=== PATIENT | female | born 1990 | race African-American/Black ===

== ENCOUNTER 2019-01-24 17:10 | Inpatient (IN) | payer OTHER, MEDICAID ==
[~2019-01-24] VITALS: Ht 162.6 cm; Wt 86.2 kg
[2019-01-24 19:09] VITALS: BP 106/60
[2019-01-24] MEDS ORDERED: cefTRIAXone 2,000 MG in DEXTROSE 5% 100 ML IV ONE (19:50)
[2019-01-24] MEDS ORDERED: MORPHINE SULFATE 5 MG/ML VIAL IVP PRN (19:50)
[2019-01-24] MEDS ORDERED: NACL 0.9% 500 ML IV ONE (19:50)
[2019-01-24] MEDS: NACL 0.9% 1,000 ML IV SCH ×2 (20:05→23:56)
[2019-01-24] MEDS ORDERED: cefTRIAXone 1,000 MG VIAL ONE (20:07)
[2019-01-24] MEDS ORDERED: MORPHINE SULFATE 10 MG/ML VIAL ONE (20:17)
[2019-01-25] MEDS ORDERED: MORPHINE SULFATE 10 MG/ML VIAL ONE ×5 (00:09→19:48)
[2019-01-25] MEDS ORDERED: LACTATED RINGERS 1,000 ML IV SCH (08:08)
[2019-01-25] MEDS ORDERED: ACETAMINOPHEN 325 MG TAB PO PRN (08:10)
--- NOTE | 2019-01-25 08:54 | NUR ---
PATIENT HAS BEEN SCREENED AND CATEGORIZED LOW NUTRITION RISK. PATIENT WILL BE SEEN WITHIN 7 DAYS OF ADMISSION. 01/31/[address]
[2019-01-25] MEDS ORDERED: ACETAMINOPHEN 325 MG TAB ONE (09:39)
[2019-01-25] MEDS: NACL 0.9% 1,000 ML IV SCH ×2 (09:52→16:36)
[2019-01-25 11:29] LABS: ANION GAP 15.4 (8-16); CARBON DIOXIDE 21.9 mmol/L (21-32); CREATININE 0.5 mg/dL (0.6-1.3); POTASSIUM 3.3 mmol/L (3.5-5.1)
[2019-01-25 13:52] LABS: BASOPHILS % (AUTO) 0.4 % (0.0-2.0); EOSINOPHILS # (AUTO) 0.1 K/uL (0-0.4); EOSINOPHILS % (AUTO) 1.2 % (0.0-4.0); HEMATOCRIT 31.6 % (36-48); HEMOGLOBIN 10.7 g/dL (12.0-16.0); LYMPHOCYTES # (AUTO) 1.4 K/uL (2.5-16.5); LYMPHOCYTES % (AUTO) 25.8 % (20.5-51.1); MEAN CORPUSCULAR HEMOGLOBIN 32 pg (27-31); MEAN CORPUSCULAR HGB CONC 34 g/dL (33-37); MEAN CORPUSCULAR VOLUME 93.4 fL (80-94); MONOCYTES # (AUTO) 0.4 K/uL (0.8-1.0); MONOCYTES % (AUTO) 8.2 % (1.7-9.3); NEUTROPHILS # (AUTO) 3.6 K/uL (1.8-7.7); NEUTROPHILS % (AUTO) 64.4 % (42.2-75.2); PLATELET COUNT (AUTO) 208 K/uL (140-450); RED BLOOD CELL COUNT(AUTO) 3.39 MIL/uL (4.20-5.40); RED CELL DISTRIBUTION WIDTH 12.7 % (11.6-13.7); WHITE BLOOD COUNT (AUTO) 5.5 K/uL (4.8-10.8)
[2019-01-25 16:25] LABS: BILIRUBIN,URINE NEGATIVE (NEGATIVE); BLOOD, URINE NEGATIVE (NEGATIVE); COLOR,URINE YELLOW (YELLOW); LEUKOCYTE ESTERASE ,URINE NEGATIVE (NEGATIVE); NITRITE, URINE NEGATIVE (NEGATIVE); UGLUCOSE NEGATIVE (NEGATIVE)
[2019-01-25 16:27] LABS: APPEARANCE,URINE CLEAR (CLEAR)
[2019-01-25 16:35] LABS: BARBITURATE, URINE NEG. ng/ml (NEG <=200); BENZODIAZEPINE, URINE NEG. ng/mL (NEG <=200); CANNABINOID, URINE POS. ng/mL (NEG <=50); COCAINE, URINE NEG. ng/mL (NEG <=300); OPIATE, URINE POS. ng/mL (NEG <=2000); PHENCYCLIDINE SCREEN,URINE NEG. ng/mL (NEG <=25)
[2019-01-25] MEDS: MORPHINE SULFATE 5 MG/ML VIAL IVP PRN (19:56)
[2019-01-25] MEDS: cefTRIAXone 1,000 MG in DEXT 5% MINI-BAG PLUS 50 ML IV SCH (20:24)
[2019-01-26] MEDS: NACL 0.9% 1,000 ML IV SCH ×2 (00:05→22:33)
[2019-01-26] MEDS ORDERED: MORPHINE SULFATE 10 MG/ML VIAL ONE ×4 (00:50→18:40)
[2019-01-26] MEDS: MORPHINE SULFATE 5 MG/ML VIAL IVP PRN ×3 (00:55→18:49)
[2019-01-26 07:43] VITALS: BP 111/57
[2019-01-26 10:29] LABS: BARBITURATE, URINE NEG. ng/ml (NEG <=200); BENZODIAZEPINE, URINE NEG. ng/mL (NEG <=200); CANNABINOID, URINE POS. ng/mL (NEG <=50); COCAINE, URINE NEG. ng/mL (NEG <=300); OPIATE, URINE POS. ng/mL (NEG <=2000); PHENCYCLIDINE SCREEN,URINE NEG. ng/mL (NEG <=25)
[2019-01-26] MEDS ORDERED: DOCUSATE SODIUM 100 MG GELCAP PO PRN (10:30)
[2019-01-26] MEDS ORDERED: cefTRIAXone 1,000 MG VIAL ONE (20:14)
[2019-01-26] MEDS: cefTRIAXone 1,000 MG in DEXT 5% MINI-BAG PLUS 50 ML IV SCH (20:24)
[2019-01-27] MEDS ORDERED: MORPHINE SULFATE 10 MG/ML VIAL ONE ×3 (01:02→13:30)
[2019-01-27] MEDS: MORPHINE SULFATE 5 MG/ML VIAL IVP PRN (01:09)
== END 2019-01-27 16:15 | disposition home or self-care (01) | DRG 833 ==
LOC: MLD 17:10 → MFCC 01-25 09:30 → OBSVTOIN 01-25 14:39
PROVIDERS: ADMIT Obstetrics & Gynecology; ATTEND Obstetrics & Gynecology
DX: O23.02 Infections of kidney in pregnancy, second trimester (principal); Z88.8 Allergy status to other drugs, medicaments and biological substances
CPT/HCPCS: G0378 ×21; 36415; 59025; 76770; 76805; 76815; 80048; 80305; 81003; 85025; 87086; C1758; J0696; J2270; J7060; J7120; Q0092

== ENCOUNTER 2019-03-19 13:30 | Inpatient (IN) | payer OTHER, MEDICAID ==
[~2019-03-19] VITALS: Ht 162.6 cm; Wt 90.3 kg
[2019-03-19] MEDS ORDERED: PREN-380 PO (14:01)
[2019-03-19 14:17] VITALS: BP 113/61
[2019-03-19 15:29] LABS: BASOPHILS % (AUTO) 0.2 % (0.0-2.0); EOSINOPHILS % (AUTO) 0.2 % (0.0-4.0); HEMATOCRIT 32.3 % (36-48); LYMPHOCYTES # (AUTO) 0.9 K/uL (2.5-16.5); LYMPHOCYTES % (AUTO) 18.4 % (20.5-51.1); MEAN CORPUSCULAR HEMOGLOBIN 31 pg (27-31); MEAN CORPUSCULAR HGB CONC 34 g/dL (33-37); MEAN CORPUSCULAR VOLUME 91.9 fL (80-94); MONOCYTES # (AUTO) 0.4 K/uL (0.8-1.0); MONOCYTES % (AUTO) 7.8 % (1.7-9.3); NEUTROPHILS # (AUTO) 3.6 K/uL (1.8-7.7); NEUTROPHILS % (AUTO) 73.4 % (42.2-75.2); PLATELET COUNT (AUTO) 203 K/uL (140-450); RED BLOOD CELL COUNT(AUTO) 3.52 MIL/uL (4.20-5.40); RED CELL DISTRIBUTION WIDTH 12.3 % (11.6-13.7)
[2019-03-19 15:42] LABS: APPEARANCE,URINE SL CLOUDY (CLEAR); BILIRUBIN,URINE NEGATIVE (NEGATIVE); BLOOD, URINE NEGATIVE (NEGATIVE); COLOR,URINE YELLOW (YELLOW); LEUKOCYTE ESTERASE ,URINE NEGATIVE (NEGATIVE); NITRITE, URINE NEGATIVE (NEGATIVE); PH,URINE 6.5 (5.0-9.0); UGLUCOSE NEGATIVE (NEGATIVE)
[2019-03-19] MEDS ORDERED: BETAMETH ACET/BETAMETH NA PH 30 MG/5 ML VIAL IM ONE (15:44)
[2019-03-19 15:53] LABS: ALBUMIN 2.8 g/dL (3.4-5.0); ANION GAP 13.8 (8-16); BARBITURATE, URINE NEG. ng/ml (NEG <=200); BENZODIAZEPINE, URINE NEG. ng/mL (NEG <=200); CANNABINOID, URINE NEG. ng/mL (NEG <=50); CARBON DIOXIDE 21.4 mmol/L (21-32); COCAINE, URINE NEG. ng/mL (NEG <=300); CREATININE 0.4 mg/dL (0.6-1.3); OPIATE, URINE NEG. ng/mL (NEG <=2000); PHENCYCLIDINE SCREEN,URINE NEG. ng/mL (NEG <=25); POTASSIUM 3.2 mmol/L (3.5-5.1); TOTAL BILIRUBIN 0.3 mg/dL (0.0-1.0)
[2019-03-19] MEDS: BETAMETH ACET/BETAMETH NA PH 30 MG/5 ML VIAL IM PRN (16:37)
[2019-03-19] MEDS: hydrOXYzine PAMOATE 25 MG CAP PO SCH ×2 (16:38→22:27)
[2019-03-19] MEDS: NACL 0.9% 1,000 ML IV SCH ×2 (16:39→19:49)
[2019-03-19] MEDS ORDERED: [UNRECOGNIZED DRUG - CODE] PO (19:33)
[2019-03-20] MEDS: NACL 0.9% 1,000 ML IV SCH ×3 (02:34→15:35)
[2019-03-20] MEDS: hydrOXYzine PAMOATE 25 MG CAP PO SCH ×4 (04:30→22:38)
[2019-03-20] MEDS: BETAMETH ACET/BETAMETH NA PH 30 MG/5 ML VIAL IM PRN (15:32)
[2019-03-20] MEDS ORDERED: ALBUTEROL 0.083% 2.5 MG/3 ML NEBU INH PRN (20:25)
[2019-03-21] MEDS: hydrOXYzine PAMOATE 25 MG CAP PO SCH (04:43)
--- NOTE | 2019-03-21 09:19 | NUR ---
PATIENT HAS BEEN SCREENED AND CATEGORIZED LOW NUTRITION RISK. PATIENT WILL BE SEEN WITHIN 7 DAYS OF ADMISSION. 03/26/[address]
[2019-03-21 09:47] LABS: BASOPHILS % (AUTO) 0.1 % (0.0-2.0); HEMATOCRIT 31.8 % (36-48); HEMOGLOBIN 10.8 g/dL (12.0-16.0); LYMPHOCYTES # (AUTO) 0.8 K/uL (2.5-16.5); LYMPHOCYTES % (AUTO) 8.8 % (20.5-51.1); MEAN CORPUSCULAR HEMOGLOBIN 32 pg (27-31); MEAN CORPUSCULAR HGB CONC 34 g/dL (33-37); MEAN CORPUSCULAR VOLUME 93.4 fL (80-94); MONOCYTES # (AUTO) 0.5 K/uL (0.8-1.0); MONOCYTES % (AUTO) 5.4 % (1.7-9.3); NEUTROPHILS # (AUTO) 7.3 K/uL (1.8-7.7); NEUTROPHILS % (AUTO) 85.7 % (42.2-75.2); PLATELET COUNT (AUTO) 217 K/uL (140-450); RED CELL DISTRIBUTION WIDTH 12.7 % (11.6-13.7); WHITE BLOOD COUNT (AUTO) 8.5 K/uL (4.8-10.8)
[2019-03-21] MEDS ORDERED: LACTATED RINGERS 1,000 ML IV SCH (11:02)
[2019-03-21] MEDS ORDERED: MIDAZOLAM 2 MG/2 ML VIAL ONE (11:15)
[2019-03-21] MEDS ORDERED: SUCCINYLCHOLINE CHLORIDE 200 MG/10 ML VIAL IVP ONE (11:15)
[2019-03-21] MEDS ORDERED: fentaNYL 0.05 MG/ML VIAL ONE (11:15)
[2019-03-21] MEDS ORDERED: ONDANSETRON 4 MG/2 ML VIAL ONE (11:15)
[2019-03-21] MEDS ORDERED: PROPOFOL 200 MG/20 ML VIAL IV ONE (11:15)
[2019-03-21] MEDS ORDERED: METHYLERGONOVINE 0.2 MG/ML AMP ONE (11:54)
[2019-03-21] MEDS ORDERED: OXYTOCIN 20 UNITS in LACTATED RINGERS 1,000 ML IV SCH (12:01)
[2019-03-21] MEDS ORDERED: diphenhydrAMINE 50 MG/ML VIAL IVP PRN (12:05)
[2019-03-21] MEDS ORDERED: MEPERIDINE 25 MG/ML SYR IVP PRN (12:05)
[2019-03-21] MEDS ORDERED: HYDROmorphone 1 MG/ML AMP IVP PRN (12:05)
[2019-03-21] MEDS ORDERED: ONDANSETRON 4 MG/2 ML VIAL IVP PRN (12:05)
[2019-03-21] MEDS ORDERED: OXYTOCIN 20 UNITS in DEXT 5% / LACT RING 1,000 ML IV SCH (15:08)
[2019-03-21] MEDS ORDERED: METHYLERGONOVINE 0.2 MG/ML AMP IM PRN (15:10)
[2019-03-21] MEDS ORDERED: HYDROcodone/APAP 10/325 MG 1 TAB TAB PO PRN (15:10)
[2019-03-21] MEDS ORDERED: MEASLES, MUMPS, AND RUBELLA 1 VIAL SQVAC PRN (15:10)
[2019-03-21] MEDS ORDERED: KETOROLAC 15 MG/ML VIAL IVP PRN (15:10)
[2019-03-21] MEDS ORDERED: TEMAZEPAM 15 MG CAP PO PRN (15:10)
[2019-03-21] MEDS ORDERED: KETOROLAC 30 MG/ML VIAL IVP PRN (15:30)
[2019-03-21] MEDS ORDERED: MORPHINE SULFATE 4 MG/ML SYR ONE (16:05)
[2019-03-21] MEDS: MORPHINE SULFATE 4 MG/ML SYR IVP PRN ×2 (16:13→21:01)
[2019-03-21] MEDS: oxyCODONE/APAP 5/325 MG 1 TAB TAB PO PRN ×2 (18:17→22:50)
[2019-03-21] MEDS: SIMETHICONE 80 MG TAB.CHEW PO PRN ×2 (18:18→22:49)
[2019-03-21] MEDS ORDERED: OXYTOCIN 20 UNITS/LR PREMIX 1,000 ML IV ONE (19:37)
[2019-03-21] MEDS: DOCUSATE SOD/SENNA 50/8.6 MG 1 TAB PO SCH (21:00)
[2019-03-22] MEDS: oxyCODONE/APAP 5/325 MG 1 TAB TAB PO PRN ×4 (03:04→22:38)
[2019-03-22] MEDS: MORPHINE SULFATE 4 MG/ML SYR IVP PRN (05:31)
[2019-03-22] MEDS ORDERED: OXYTOCIN 20 UNITS/LR PREMIX 1,000 ML IV ONE (07:31)
[2019-03-22] MEDS: KETOROLAC 30 MG/ML VIAL IVP PRN ×3 (07:37→19:39)
[2019-03-22] MEDS ORDERED: MORPHINE SULFATE 4 MG/ML SYR IVP PRN (08:30)
[2019-03-22] MEDS: BISACODYL 10 MG SUPP RC SCH (09:00)
[2019-03-22 09:20] LABS: BASOPHILS % (AUTO) 0.1 % (0.0-2.0); EOSINOPHILS % (AUTO) 0.1 % (0.0-4.0); HEMATOCRIT 28.8 % (36-48); LYMPHOCYTES # (AUTO) 1.3 K/uL (2.5-16.5); LYMPHOCYTES % (AUTO) 11.9 % (20.5-51.1); MEAN CORPUSCULAR HEMOGLOBIN 32 pg (27-31); MEAN CORPUSCULAR HGB CONC 35 g/dL (33-37); MEAN CORPUSCULAR VOLUME 92.8 fL (80-94); MONOCYTES # (AUTO) 0.8 K/uL (0.8-1.0); MONOCYTES % (AUTO) 7.2 % (1.7-9.3); NEUTROPHILS # (AUTO) 8.6 K/uL (1.8-7.7); NEUTROPHILS % (AUTO) 80.7 % (42.2-75.2); PLATELET COUNT (AUTO) 186 K/uL (140-450); RED CELL DISTRIBUTION WIDTH 12.6 % (11.6-13.7); WHITE BLOOD COUNT (AUTO) 10.7 K/uL (4.8-10.8)
[2019-03-22] MEDS: DOCUSATE SOD/SENNA 50/8.6 MG 1 TAB PO SCH (21:12)
[2019-03-22] MEDS: SIMETHICONE 80 MG TAB.CHEW PO PRN (21:12)
[2019-03-23] MEDS: KETOROLAC 30 MG/ML VIAL IVP PRN ×3 (03:52→17:22)
[2019-03-23] MEDS: TEMAZEPAM 15 MG CAP PO PRN ×2 (05:30→21:08)
[2019-03-23] MEDS: oxyCODONE/APAP 5/325 MG 1 TAB TAB PO PRN ×3 (07:47→19:42)
[2019-03-23] MEDS: BISACODYL 10 MG SUPP RC SCH (09:00)
[2019-03-23] MEDS: DOCUSATE SOD/SENNA 50/8.6 MG 1 TAB PO SCH (21:03)
[2019-03-23] MEDS ORDERED: INFLUENZA VACCINE QUAD 0.5 ML SYR IMVAC PRN (21:30)
[2019-03-24] MEDS: KETOROLAC 30 MG/ML VIAL IVP PRN ×2 (02:24→02:57)
[2019-03-24] MEDS ORDERED: CAMERA MC ONE ×2 (03:44→13:28)
[2019-03-24] MEDS: oxyCODONE/APAP 5/325 MG 1 TAB TAB PO PRN ×2 (04:49→08:31)
[2019-03-24] MEDS: SIMETHICONE 80 MG TAB.CHEW PO PRN (08:31)
[2019-03-24] MEDS ORDERED: HYDR-5122 PO (13:06)
[2019-03-24] MEDS ORDERED: [UNRECOGNIZED DRUG - CODE] PO (13:08)
[2019-03-24] MEDS ORDERED: FERR-13 PO (13:09)
[2019-03-24] MEDS ORDERED: FERR325E14 PO (13:10)
== END 2019-03-24 14:20 | disposition home or self-care (01) | DRG 786 ==
LOC: MLD 13:30 → OBSVTOIN 13:30 → UNDOADMOB 13:35 → MLD 13:35 → OBSVTOIN 03-20 07:53 → INTOOBSV 03-20 07:53 → MFCC 03-21 12:25 → MLD 03-21 12:25 → MFCC 03-21 14:01
PROVIDERS: ADMIT Obstetrics & Gynecology; ATTEND Obstetrics & Gynecology
PROC: 10D00Z0 Extraction of Products of Conception, High, Open Approach (ICD-10-PCS; principal; 2019-03-21 11:00)
PROC: 3E0234Z Introduction of Serum, Toxoid and Vaccine into Muscle, Percutaneous Approach (ICD-10-PCS; 2019-03-24)
DX: O41.03X0 Oligohydramnios, third trimester, not applicable or unspecified (principal); O45.93 Premature separation of placenta, unspecified, third trimester; O34.219 Maternal care for unspecified type scar from previous cesarean delivery; O99.52 Diseases of the respiratory system complicating childbirth; J45.909 Unspecified asthma, uncomplicated; Z85.6 Personal history of leukemia; Z86.73 Personal history of transient ischemic attack (TIA), and cerebral infarction without residual deficits; Z37.0 Single live birth; Z88.8 Allergy status to other drugs, medicaments and biological substances; O32.8XX0 Maternal care for other malpresentation of fetus, not applicable or unspecified; Z3A.31 31 weeks gestation of pregnancy; Z23 Encounter for immunization
CPT/HCPCS: 36415; 51702; 76805; 76815; 76819; 80053; 80305; 81003; 85025; 85384; 86592; 86886; 86900; 86901; 90715; 93005; J0330; J0690; J0702; J1885; J2210; J2250; J2270; J2405; J2590; J2704; J3010; J7060; J7120; Q0092; Q0177